=== PATIENT | female | born 1960 | race Caucasian/White ===

== ENCOUNTER → 2017-12-07 | Outpatient (CLI) | payer MEDICARE, OTHER ==
[~2017-12-07] MED LIST: AMITRIPTYLINE H10 MG PO; ASACOL HD800 MG PO; ATARAX PO; BUTALB-CAFF-AC1 EACH PO; CYCLOBENZAPRINE10 MG PO; CYCLOBENZAPRINE5 MG PO; ELMIRON100 MG PO; FLEXERIL PO; FLEXERIL5 MG PO; HYDROXYZINE HCL50 MG PO; LIBRAX CAPSULE1 EACH PO; LIPITOR40 MG PO; LOPRESSOR25 MG PO; LYRICA100 MG PO; NORCO 10-325 T1 EACH PO; OPANA ER15 MG PO; OPANA10 MG PO; OXYCODONE-ACET1 EAC3 PO; OXYCONTIN20 MG PO; OXYMORPHONE HCL10 MG PO; OXYMORPHONE HCL15 MG PO; PREVACID30 M1 PO; TEMAZEPAM15 MG PO; TEMAZEPAM22.5 MG PO; [UNRECOGNIZED DRUG - OTHER]
--- NOTE | 2017-12-07 12:36 | Diagnostic Imaging Report ---
PROCEDURE:RIBS UNILAT W/CXR TECHNIQUE:PA chest with AP and oblique views of the left ribs. INDICATION:Left rib pain COMPARISON:None. FINDINGS: Healed fracture of the right fourth rib. Nondisplaced fracture at the anterior margin of the left second rib. No conspicuous lytic or blastic lesions. Clear lungs. Upper limits of normal heart size for technique. Mild biapical pleural scarring. Intact skeleton. Cholecystectomy clips. CONCLUSION: Nondisplaced fracture of the left second rib. Dictated by: Alberto Wang M.D. on 12/07/2017 at 12:39 Electronically approved by: Alberto Wang M.D. on 12/07/2017 at 12:39
--- NOTE | 2017-12-07 12:39 | Diagnostic Imaging Report ---
PROCEDURE:CHEST 2 VIEWS TECHNIQUE:PA and lateral chest. INDICATION:Left-sided rib pain. COMPARISON:[facility], DX, RIBS UNILAT W/CXR, 12/07/2017, 11:53. [facility], DX, CHEST 2 VIEWS, 04/15/2017, 7:49. FINDINGS: The lungs are clear and symmetrically inflated. Normal heart size and mediastinal contour. Intact skeleton. CONCLUSION: No acute abnormality. Nondisplaced left second rib fracture seen on recent rib series is not conspicuous. Dictated by: Alberto Wang M.D. on 12/07/2017 at 12:42 Electronically approved by: Alberto Wang M.D. on 12/07/2017 at 12:42
== END ==
LOC: RAD 11:31
PROVIDERS: ATTEND Family Medicine
DX: S20.219A Contusion of unspecified front wall of thorax, initial encounter (principal)
CPT/HCPCS: 71046; 71101

== ENCOUNTER → 2018-01-15 | Outpatient (CLI) | payer MEDICARE, OTHER ==
--- NOTE | 2018-01-15 15:10 | Diagnostic Imaging Report ---
PROCEDURE: CT CHEST WITHOUT CONTRAST CT scan of the chest WITHOUT intravenous contrast, using standard protocol. TECHNIQUE: The chest was scanned utilizing a multidetector helical scanner from the apex to the level of the adrenal glands. No IV contrast was administered. Coronal and sagittal multiplanar reformations were obtained. COMPARISON: None. INDICATIONS: COPD, SOB FINDINGS: Lines/tubes: None. Lungs and Airways: Mild paraseptal and centrilobular emphysema within upper lobe predominance. Biapical subpleural scarring. No focal consolidation. No suspicious lung masses. The central airways are clear. Pleura: The pleural spaces are clear. Heart and mediastinum: The thyroid gland is normal. No significant mediastinal, hilar or axillary lymphadenopathy is seen. Anterior diaphragmatic lymph nodes which measure up to 1.0 cm (series 2, image 91) are nonspecific. Normal heart size. No pericardial effusion. Soft tissues: Normal. Abdomen: The right kidney is not visualized. There are metallic fragments in the right retroperitoneum. There is been a cholecystectomy. Bones: Multilevel spondylosis of the thoracic spine with exaggerated kyphosis IMPRESSION: Radiographically mild paraseptal and centrilobular emphysema. No focal consolidation or suspicious lung masses. Dictated by: Rustam Enciso M.D. on 01/15/2018 at 15:15 Electronically approved by: Rustam Enciso M.D. on 01/15/2018 at 15:15
== END ==
LOC: CT 13:41
PROVIDERS: ATTEND Family Medicine
DX: J44.9 Chronic obstructive pulmonary disease, unspecified (principal)
CPT/HCPCS: 71250

== ENCOUNTER 2018-01-19 09:08 | Emergency (ER) | payer MEDICARE, OTHER ==
[~2018-01-19] VITALS: Ht 157.5 cm; Wt 54.9 kg
[2018-01-19] MEDS ORDERED: ONDANSETRON HCL 4 MG ORAL DISINTEGRATING TAB PO ONE (10:00)
[2018-01-19] MEDS ORDERED: FENTANYL CITRATE/PF 100MCG/2 ML INJ IV ONE (10:00)
--- NOTE | 2018-01-19 11:32 | Diagnostic Imaging Report ---
PROCEDURE:X-RAY ABDOMEN, ACUTE SERIES COMPARISON:CT Abdomen/Pelvis 11/27/2008 INDICATIONS:LEFT SIDE ABDOMEN PAIN FINDINGS: No dilated loops of bowel. There are non-distended small bowel loops with air fluid levels on upright view, however air and stool is seen in the colon. No free air underneath the diaphragm. Status post cholecystectomy. Additional clips project over right upper quadrant. Visualized portions of the lung bases are clear. No definite calcifications are seen overlying the urinary system. Five non-rib bearing lumbar type vertebral bodies identified. CONCLUSION: Air fluid levels in non-dilated small bowel loops, which may suggest enteritis. Air is seen in colonic loops, therefore no specific evidence of obstruction. Dictated by: LYNDSEY MAHAN M.D. on 01/19/2018 at 11:36 Electronically approved by: LYNDSEY MAHAN M.D. on 01/19/2018 at 11:36
[2018-01-19 12:23] LABS: BASOPHILS # (AUTO) 0.1 (0.0-0.1); BASOPHILS % 0.6 % (0.0-1.0); EOSINOPHILS # (AUTO) 0.7 (0.0-0.4); EOSINOPHILS % 6.4 % (0.0-6.0); HEMATOCRIT 47.4 % (34.2-44.1); HEMOGLOBIN 16.1 g/dL (12.0-16.0); LYMPHOCYTES # (AUTO) 2.5 (1.0-3.2); MEAN CORPUSCULAR HEMOGLOBIN 31.2 pg (28-32); MEAN CORPUSCULAR VOLUME 91.9 fL (81-99); MONOCYTES # (AUTO) 0.8 (0.2-0.8); MONOCYTES % 7.4 % (4.4-11.3); NEUTROPHILS # (AUTO) 7.1 (2.1-6.9); NEUTROPHILS % 63.3 % (38.7-80.0); PLATELET COUNT 174 x10e3/uL (140-360); RED BLOOD COUNT 5.16 x10e6/uL (3.6-5.1); RED CELL DISTRIBUTION WIDTH 12.5 % (11.7-14.4)
[2018-01-19 12:41] LABS: ALBUMIN 4.1 g/dL (3.5-5.0); ALBUMIN/GLOBULIN RATIO 0.9 (0.8-2.0); ANION GAP 17.6 mmol/L (8-16); CALCIUM 10.1 mg/dL (8.4-10.2); CREATININE, SERUM 0.98 mg/dL (0.57-1.11); MAGNESIUM 2.3 MG/DL (1.3-2.1); POTASSIUM 4.6 mmol/L (3.5-5.1)
[2018-01-19] MEDS ORDERED: DIATRIZOATE MEGL/DIATRIZOA SOD 30 ML BTL PO ONE (13:12)
[2018-01-19] MEDS ORDERED: SODIUM CHLORIDE 0.9% 50ML 50 ML ONE (14:35)
[2018-01-19] MEDS ORDERED: IOPAMIDOL 370 MG/ML 200 ML INFUS..BTL INJ ONE (14:35)
[2018-01-19] MEDS ORDERED: FENTANYL CITRATE/PF 100MCG/2 ML INJ IV NR (14:45)
[2018-01-19] MEDS ORDERED: ONDANSETRON HCL 4 MG ORAL DISINTEGRATING TAB PO NR (14:45)
--- NOTE | 2018-01-19 15:34 | Diagnostic Imaging Report ---
PROCEDURE: CT ABDOMEN AND PELVIS WITH CONTRAST TECHNIQUE: The abdomen and pelvis were scanned utilizing a multidetector helical scanner from the diaphragm to the lesser trochanter after the IV administration of 100 cc of Isovue 370 and the oral administration of dilute Gastrografin. Coronal and sagittal multiplanar reformations were obtained. COMPARISON: [facility], CT, CT ABDOMEN/PELVIS W, 06/12/2014, 13:52. INDICATIONS: LEFT ABD PAIN, HX OF CHRONS FINDINGS: LOWER THORAX: Unremarkable HEPATOBILIARY: No focal hepatic lesions. Moderate central intrahepatic bile duct dilation and moderate dilation of the common bile duct, which measures 1.2 cm at the sherman hepatis and is stable since the prior exam. No radiopaque intraluminal filling defects. Cholecystectomy clips. SPLEEN: No splenomegaly. PANCREAS: No focal masses or ductal dilatation. ADRENALS: No adrenal nodules. KIDNEYS/URETERS: Status post right nephrectomy. Left kidney shows no hydronephrosis, stones, or a solid, enhancing lesions. Normal parenchymal enhancement. PELVIC ORGANS/BLADDER: Bladder is unremarkable. Uterus is not visualized. No adnexal masses. PERITONEUM / RETROPERITONEUM: No free air or fluid. LYMPH NODES: No lymphadenopathy. VESSELS: Atherosclerotic calcification of the abdominal aorta and iliac vessels. GI TRACT: No bowel dilation or evidence of obstruction. Moderate retained stool in the cecum, ascending, and proximal transverse colon. Stable surgical sutures in the mid sigmoid. No wall thickening or pericolonic inflammatory changes. BONES AND SOFT TISSUES: No aggressive lytic lesions. Multilevel degenerative disc changes in the lumbosacral spine. Mild osteopenia. Soft tissues are unremarkable. IMPRESSION: 1. No acute abdominopelvic abnormalities. Specifically, no acute abnormal findings in the left abdomen to explain the patient's pain. 2. No bowel dilation or evidence of obstruction. Moderate retained stool in the cecum, ascending, and proximal transverse colon, however, relatively unchanged since the prior exam. 3. Stable moderate central intrahepatic bile duct and moderate dilation of the common bile duct, consistent with postcholecystectomy status Jonny Landry M.D. Dictated by: Jonny Landry M.D. on 01/19/2018 at 15:39 Electronically approved by: Jonny Landry M.D. on 01/19/2018 at 15:39
== END 2018-01-19 16:27 | disposition home or self-care (01) ==
LOC: ER 09:08
DX: R10.32 Left lower quadrant pain (principal); R10.12 Left upper quadrant pain; R11.2 Nausea with vomiting, unspecified; I10 Essential (primary) hypertension; E78.5 Hyperlipidemia, unspecified; K50.90 Crohn's disease, unspecified, without complications; K21.9 Gastro-esophageal reflux disease without esophagitis; Z85.53 Personal history of malignant neoplasm of renal pelvis
CPT/HCPCS: 36415; 74022; 74177; 80053; 83690; 83735; 85025; 99284; Q9967

== ENCOUNTER → 2018-01-27 | Day surgery (SDC) | payer MEDICARE, OTHER ==
[~2018-01-27] MED LIST changes: +DONNATAL/LIDOCAINE/MAALOX 30 ML SUSP PO ONE; +FENTANYL CITRATE/PF 100MCG/2 ML INJ ONE; +LEVAQUIN500 MG PO; +LIDOCAINE HCL 2% LOCAL INJ 5 ML SDV VIAL INJ ONE; +LISINOPRIL2.5 MG PO; +METRONIDAZOLE500 MG PO; +MIDAZOLAM HCL 2 MG/2 ML VIAL ONE; +OXYMORPHONE PO; +PROPOFOL IV EMULSION 10 MG/ML 50 ML VIAL ONE; +SYMBICORT 16010.2 GM INH; +TIZANIDINE HCL4 MG PO; +TRAZODONE HCL50 MG PO; +ZOFRAN ODT4 MG PO
--- NOTE | 2018-01-27 11:50 | Operative Report ---
DATE OF PROCEDURE: January 27, 2018 REFERRING PHYSICIAN: Dr. Alexy Hayden. PROCEDURE PERFORMED: Esophagogastroduodenoscopy with esophageal dilatation and biopsies. INDICATIONS FOR ESOPHAGOGASTRODUODENOSCOPY: Dysphagia, upper abdominal pain. MEDICATION: Patient was done under MAC. Please see anesthesiologist's note. PROCEDURE: Patient in left lateral decubitus position. Flexible fiberoptic Olympus gastroscope was introduced into the esophagus under direct visualization without any difficulty. There was some patchy erythema noted in distal esophagus. A minute nodule was noted at the GE junction and that was biopsied. There was a mild stricture at the GE junction that was dilated to a size 52-[place] Schmid. The scope was then advanced with ease into the stomach traversing a small sliding hiatal hernia. Mucosa overlying the antrum and the body revealed some diffuse erythema and low-grade edema and biopsies were obtained and sent to stain for H. pylori. Some focal nodularity was noted in the pylorus and that was biopsied. The pylorus was then intubated with ease and the scope was advanced all the way to the 2nd portion of the duodenum. The scope was then withdrawn slowly. Mucosa overlying the proximal 2nd portion and the duodenal bulb appeared to be within normal limits. The scope was then withdrawn back into the stomach and retroflexed. Mucosa overlying the fundus and the cardia appeared to be within normal limits. The scope was then straightened out. The stomach was decompressed. The scope was subsequently withdrawn. Patient tolerated procedure well. IMPRESSIONS 1. Distal esophagitis, mild. 2. Mild stricture at gastroesophageal junction, dilated to size 52-[place] Schmid. 3. Minute nodule, gastroesophageal junction, biopsied. 4. Small sliding hiatal hernia. 5. Gastritis, biopsied. Biopsies sent to stain for Helicobacter pylori. 6. Focal nodularity, pylorus, biopsied. PLAN: Follow up histology. Increase Protonix to 40 mg 1 p.o. a.c. b.i.d. Job#: [id number] TA cc:ALEXY HAYDEN MD
== END | disposition home or self-care (01) ==
LOC: OR 08:03
PROVIDERS: ATTEND Internal Medicine Gastroenterology
DX: K29.70 Gastritis, unspecified, without bleeding (principal); K31.7 Polyp of stomach and duodenum; K22.2 Esophageal obstruction; K21.0 Gastro-esophageal reflux disease with esophagitis; K44.9 Diaphragmatic hernia without obstruction or gangrene; K31.89 Other diseases of stomach and duodenum; K59.00 Constipation, unspecified; J44.9 Chronic obstructive pulmonary disease, unspecified; I10 Essential (primary) hypertension; M81.0 Age-related osteoporosis without current pathological fracture; G62.9 Polyneuropathy, unspecified; F17.210 Nicotine dependence, cigarettes, uncomplicated; Z88.6 Allergy status to analgesic agent; Z88.3 Allergy status to other anti-infective agents; Z88.0 Allergy status to penicillin; Z88.8 Allergy status to other drugs, medicaments and biological substances; Z85.528 Personal history of other malignant neoplasm of kidney
CPT/HCPCS: 43239; 43450; 88305; 88312; J2001; J2250

== ENCOUNTER → 2018-06-01 | Outpatient (CLI) | payer MEDICARE, OTHER ==
[~2018-06-01] MED LIST changes: -DONNATAL/LIDOCAINE/MAALOX 30 ML SUSP PO ONE; -FENTANYL CITRATE/PF 100MCG/2 ML INJ ONE; -LIDOCAINE HCL 2% LOCAL INJ 5 ML SDV VIAL INJ ONE; -MIDAZOLAM HCL 2 MG/2 ML VIAL ONE; -PROPOFOL IV EMULSION 10 MG/ML 50 ML VIAL ONE
--- NOTE | 2018-06-01 08:28 | Diagnostic Imaging Report ---
PROCEDURE: CT CHEST WITHOUT CONTRAST CT scan of the chest WITHOUT intravenous contrast, using standard protocol. TECHNIQUE: The chest was scanned utilizing a multidetector helical scanner from the apex to the level of the adrenal glands. No IV contrast was administered per protocol. Coronal and sagittal multiplanar reformations were obtained. COMPARISON: CT Chest 01/15/18. INDICATIONS: BRONCHITIS FINDINGS: Lines/tubes: None. Lungs and Airways: There are patchy ground glass opacities in the left upper lobe on series 3, image [id number], new since CT on 01/15/18. Mild upper lobe predominant paraseptal and centrilobular emphysema. Mild subpleural reticular opacities in the right upper lobe, for example on series 3, image 37. Biapical pleural parenchymal scarring. The central airways are patent. Mild diffuse bronchial wall thickening. Pleura: The pleural spaces are clear. Heart and mediastinum: The thyroid gland is normal. No significant mediastinal, hilar or axillary lymphadenopathy is seen. No pericardial effusion. Scattered atherosclerotic changes of the thoracic aorta. Unchanged non-specific anterior diaphragmatic lymph nodes measuring up to 1 cm. Soft tissues: Normal. Abdomen: Limited views of the upper abdomen show no abnormality within the visualized liver, spleen, pancreas, or kidneys. The adrenal glands are normal. Status post cholecystectomy. Metal fragments are in the right upper quadrant abdomen. The right kidney is not visualized. Bones: No acute bony findings. There is kyphosis of the thoracic spine with multilevel degenerative changes. Interval development of severe compression deformity at T8 with greater than 75 percent loss of vertebral body height. Mild compression deformities at T10 and T11 and moderate compression deformity at T12 are similar in appearance to the prior CT. Interval development of a mild compression deformity at L1. Healing right 8-10th posterolateral rib fractures and left anterolateral 3-6th rib fractures with associated bony callous formation, prior nearly healed fractures were present at these sites. IMPRESSION: Patchy ground glass opacities in the left upper lobe, new since CT on 01/15/18, likely infectious in etiology. No evidence of lobar pneumonia. Follow-up chest CT is suggested to assess for resolution in 3 months. Diffuse mild bronchial wall thickening, compatible with clinical history of bronchitis. Interval development of severe compression deformity at T8 and mild compression deformity at L1 since prior CT. Additional compression deformities at T10-T12 are unchanged. Interval developing of subacute on chronic healing bilateral rib fractures as above. Dictated by: LYNDSEY MAHAN M.D. on 06/01/2018 at 8:38 Electronically approved by: LYNDSEY MAHAN M.D. on 06/01/2018 at 8:38
== END ==
LOC: CT 07:28
PROVIDERS: ATTEND Family Medicine
DX: J40 Bronchitis, not specified as acute or chronic (principal)
CPT/HCPCS: 71250

== ENCOUNTER → 2018-10-21 | Outpatient (CLI) | payer MEDICARE, OTHER ==
[~2018-10-21] MED LIST changes: +APRISO0.375 GM PO; +DICYCLOMINE HCL10 MG PO; +PANTOPRAZOLE SO40 MG PO; +PROAIR HFA INH8.5 GM INH; +SUCRALFATE1 GM PO; +VITAMIN D1000 UNI1 PO
--- NOTE | 2018-10-21 15:27 | Diagnostic Imaging Report ---
FLUOROSCOPIC SMALL BOWEL SERIES ESL TEACHER(S): Kaitlin Monaco MD Indication: Ulcerative colitis. Comparison: None. Radiation Dose: Total dose: 13.4 mGy Total fluoroscopy time: 0.6 minutes Procedure: Small bowel follow through exam was performed using oral barium. Preliminary image was obtained before administration of contrast and serial overhead images were obtained after administration of oral barium. Fluoroscopy was performed and spot images were obtained. DISCUSSION: WATER QUALITY MANAGER: The bowel gas pattern is non-obstructive. No acute bony abnormality. Surgical clips in the right upper and mid abdomen. Moderate amount of stool in the colon. STOMACH: Unremarkable mucosal pattern. SMALL BOWEL: Bulb and sweep are normal. Duodenal-jejunal junction is in the normal expected position. Small bowel loops are normal in caliber and distribution. There is no evidence of fistula, mucosal changes, stricture or dilation. The transit time was within normal limits. Spot image of the terminal ileum was unremarkable. COLON: Filling defects within the proximal colon likely reflect stool contents. No evidence of stricture or specific evidence of mass in the cecum. IMPRESSION: Unremarkable fluoroscopic small bowel series. Signed by: Dr. Kaitlin Monaco MD on 10/21/2018 3:24 PM
== END ==
LOC: DX 08:26
PROVIDERS: ATTEND Internal Medicine Gastroenterology
DX: K51.90 Ulcerative colitis, unspecified, without complications (principal)
CPT/HCPCS: 74250

== ENCOUNTER → 2018-12-07 | Outpatient (CLI) | payer MEDICARE, OTHER ==
--- NOTE | 2018-12-07 09:11 | Diagnostic Imaging Report ---
EXAM: CT Chest without contrast INDICATION: Follow-up pneumonia. COMPARISON: CT Chest 06/01/18. TECHNIQUE: Chest was scanned utilizing a multidetector helical scanner from the lung apex through the level of the adrenal glands without administration of IV contrast. Coronal and sagittal reformations were obtained. Routine protocol was performed. RADIATION DOSE: Total DLP: 155.6 mGy*cm Dose modulation, iterative reconstruction, and/or weight based adjustment of the mA/kV was utilized to reduce the radiation dose to as low as reasonably achievable. COMPLICATIONS: None FINDINGS: LINES/ TUBES: None. LUNGS AND AIRWAYS: Interval resolution of patchy groundglass opacities in the left upper lobe. Mild upper lobe predominant paraseptal and centrilobular emphysematous changes of the lungs. Mild subpleural reticular opacities in the right upper lobe. Biapical pleural-parenchymal scarring. The central airways are patent. PLEURA: The pleural spaces are clear. HEART AND MEDIASTINUM: The thyroid gland is normal. No mediastinal, hilar or axillary lymphadenopathy. No cardiomegaly or pericardial effusion. Scattered atherosclerotic changes of the thoracic aorta. Unchanged nonspecific prominent anterior diaphragmatic lymph nodes, measuring up to 1 cm. UPPER ABDOMEN: Limited non-contrast views of the upper abdomen. Status post cholecystectomy. Metal fragments are in the right upper quadrant. The right kidney is not visualized. BONES: No acute osseous abnormality. Thoracic kyphosis with multilevel degenerative changes. Unchanged severe compression deformity of T8 with greater than 75% loss of vertebral body height. Unchanged mild compression deformities of T10, T11, and L1 as well as moderate compression deformity at T12. SOFT TISSUES: Unremarkable. IMPRESSION: Interval resolution of patchy groundglass opacities in the left upper lobe, consistent with resolution of infectious etiology. Multiple lower thoracic and upper lumbar compression deformities and bilateral healing rib fractures as above. Signed by: Dr. Kaitlin Monaco MD on 12/07/2018 9:08 AM
== END ==
LOC: CT 08:12
PROVIDERS: ATTEND Internal Medicine
DX: R91.8 Other nonspecific abnormal finding of lung field (principal)
CPT/HCPCS: 71250

== ENCOUNTER → 2019-04-08 | Day surgery (SDC) | payer MEDICARE, OTHER ==
[~2019-04-08] MED LIST changes: +FENTANYL CITRATE/PF 100MCG/2 ML INJ ONE; +LIDOCAINE HCL 2% LOCAL INJ 5 ML SDV VIAL INJ ONE; +METOCLOPRAMIDE HCL 10 MG/2ML VIAL ONE; +MIDAZOLAM HCL 2 MG/2 ML VIAL ONE; +PROPOFOL IV EMULSION 10 MG/ML 50 ML VIAL ONE
[2019-04-08 18:10] VITALS: BP 127/63
--- NOTE | 2019-04-09 01:08 | Operative Report ---
DATE OF PROCEDURE: 04/08/2019 SURGEON: Rubén Seo MD PROCEDURE: EGD with esophageal dilatation and biopsies. INDICATIONS FOR EGD: Dysphagia to solids. MEDICATIONS: The patient was done under MAC, please see anesthesiologist's note. PROCEDURE IN DETAIL: With the patient in left lateral decubitus position, flexible fiberoptic Olympus gastroscope was introduced into the esophagus under direct visualization without any difficulty. There was some patchy erythema noted in distal esophagus. A mild stricture was noted at the GE junction. It was dilated to size 54-[place] Schmid. The scope was then advanced with ease into the stomach traversing a small sliding hiatal hernia. Mucosa overlying the antrum revealed some diffuse intense erythema and moderate edema and biopsies were obtained, sent to stain for H pylori. Pylorus was of normal contour and shape, it was intubated with ease and the scope was advanced all the way to the second portion of the duodenum. The scope was then withdrawn slowly. Mucosa overlying the proximal second portion and the duodenal bulb appeared to be within normal limits. The scope was then withdrawn back into the stomach and retroflexed, and mucosa overlying the fundus and cardia appeared to be within normal limits. The scope was then straightened out, it was subsequently withdrawn, and the patient tolerated the procedure well. IMPRESSION: 1. Distal esophagitis. 2. Mild stricture at GE junction dilated to size 54-[place] Schmid. 3. Small sliding hiatal hernia. 4. Gastritis, biopsied. Biopsies sent to stain for Helicobacter pylori. PLAN: Follow up histology. Initiate Dexilant 60 mg one p.o. q.a.m. a.c. Rubén Seo MD [facility] [place]/JOSEFIN[facility] /[id number] cc: Robin Hayden MD
== END | disposition home or self-care (01) ==
LOC: OR 13:22
PROVIDERS: ATTEND Internal Medicine Gastroenterology
DX: K22.2 Esophageal obstruction (principal); K20.9 Esophagitis, unspecified; R13.10 Dysphagia, unspecified; K44.9 Diaphragmatic hernia without obstruction or gangrene; K29.50 Unspecified chronic gastritis without bleeding; Z01.810 Encounter for preprocedural cardiovascular examination
CPT/HCPCS: 43239; 43450; 88305; 88312; 93005; J2001; J2250; J2704; J2765; J3010

== ENCOUNTER → 2019-04-13 | Outpatient (CLI) | payer MEDICARE, OTHER ==
[~2019-04-13] MED LIST changes: -FENTANYL CITRATE/PF 100MCG/2 ML INJ ONE; -LIDOCAINE HCL 2% LOCAL INJ 5 ML SDV VIAL INJ ONE; -METOCLOPRAMIDE HCL 10 MG/2ML VIAL ONE; -MIDAZOLAM HCL 2 MG/2 ML VIAL ONE; -PROPOFOL IV EMULSION 10 MG/ML 50 ML VIAL ONE
--- NOTE | 2019-04-13 15:21 | Diagnostic Imaging Report ---
PROCEDURE: X-RAY MODIFIED BARIUM SWALLOW COMPARISON: None. INDICATION: Dysphasia Radiation Details: Fluoroscopy time: 0.7 minutes Cumulative dose: 2.7 mGy DISCUSSION: Fluoroscopic examination was performed in conjunction with speech pathology during swallowing a variety of thin and thick liquid consistencies. Provided images demonstrate no laryngeal penetration or aspiration. CONCLUSION: Modified barium swallow demonstrating no laryngeal penetration or aspiration. Please refer to the speech pathology report for further details. Signed by: Parmjit Banks MD on 04/13/2019 3:18 PM
== END ==
LOC: DX 13:42
PROVIDERS: ATTEND Internal Medicine Gastroenterology
DX: R13.10 Dysphagia, unspecified (principal)
CPT/HCPCS: 74230

== ENCOUNTER → 2020-04-18 | Day surgery (SDC) | payer MEDICARE, OTHER ==
[2020-04-13 10:23] LABS: BASOPHILS # (AUTO) 0.1 (0.0-0.1); BASOPHILS % 0.7 % (0.0-1.0); EOSINOPHILS # (AUTO) 0.2 (0.0-0.4); EOSINOPHILS % 2.7 % (0.0-6.0); HEMATOCRIT 49.5 % (34.2-44.1); LYMPHOCYTES # (AUTO) 2.6 (1.0-3.2); LYMPHOCYTES % 31.2 % (18.0-39.1); MEAN CORPUSCULAR HEMOGLOBIN 30.7 pg (28-32); MEAN CORPUSCULAR HGB CONC 32.3 g/dL (31-35); MONOCYTES # (AUTO) 0.7 (0.2-0.8); MONOCYTES % 8.1 % (4.4-11.3); NEUTROPHILS # (AUTO) 4.8 (2.1-6.9); NEUTROPHILS % 57.1 % (38.7-80.0); PLATELET COUNT 193 x10e3/uL (140-360); RED BLOOD COUNT 5.21 x10e6/uL (3.6-5.1); RED CELL DISTRIBUTION WIDTH 13.2 % (11.7-14.4)
[2020-04-13 10:33] LABS: ALANINE AMINOTRANSFERASE 17 IU/L (0-55); ALBUMIN 4.1 g/dL (3.5-5.0); ALBUMIN/GLOBULIN RATIO 1.1 (0.8-2.0); ALKALINE PHOSPHATASE 122 IU/L (40-150); ANION GAP 15.1 mmol/L (8-16); BLOOD UREA NITROGEN 11 mg/dL (7-26); BUN/CREATININE RATIO 13 (6-25); CALCIUM 9.5 mg/dL (8.4-10.2); CARBON DIOXIDE 22 mmol/L (22-29); CHLORIDE 105 mmol/L (98-107); CREATININE, SERUM 0.87 mg/dL (0.57-1.11); EST GLOMERULAR FILTRATION RATE > 60 ML/MIN (60-); GLUCOSE 91 mg/dL (74-118); POTASSIUM 4.1 mmol/L (3.5-5.1); SODIUM 138 mmol/L (136-145)
[~2020-04-18] MED LIST changes: +DEXAMETHASONE SOD PHOS INJ 4 MG/ML VIAL ONE; +IOPAMIDOL 300MG/ML 50ML INFUS..BTL IV ONE; +LIDOCAINE HCL 2% LOCAL INJ 5 ML SDV VIAL INJ ONE; +ONDANSETRON HCL INJ 2MG/ML 2ML 2 MG/ML VIAL ONE; +PROPOFOL IV EMULSION 10 MG/ML 20 ML VIAL ONE; +SEVOFLURANE INHAL SOLN 250 ML PEN BTL ONE; +XTAMPZA ER13.5 MG PO
[2020-04-18 08:25] VITALS: BP 120/65
== END | disposition home or self-care (01) ==
LOC: OR 05:25
PROVIDERS: ATTEND Urology
DX: N36.42 Intrinsic sphincter deficiency (ISD) (principal); N81.6 Rectocele; Z88.1 Allergy status to other antibiotic agents; Z88.5 Allergy status to narcotic agent; Z88.0 Allergy status to penicillin; Z88.8 Allergy status to other drugs, medicaments and biological substances; Z85.528 Personal history of other malignant neoplasm of kidney; Z01.810 Encounter for preprocedural cardiovascular examination; Z01.812 Encounter for preprocedural laboratory examination; Z11.59 Encounter for screening for other viral diseases
CPT/HCPCS: 36415; 52250; 74420; 80053; 85025; 87086; 93005; C1758; J1100; J2001; J2405; J2704; Q9967; U0002

== ENCOUNTER → 2024-02-05 | Outpatient (REF) | payer MEDICARE, OTHER ==
[~2024-02-05] MED LIST changes: -DEXAMETHASONE SOD PHOS INJ 4 MG/ML VIAL ONE; -IOPAMIDOL 300MG/ML 50ML INFUS..BTL IV ONE; +IOPAMIDOL 370 MG/ML 100 ML INFUS..BTL INJ ONE; -LIDOCAINE HCL 2% LOCAL INJ 5 ML SDV VIAL INJ ONE; -ONDANSETRON HCL INJ 2MG/ML 2ML 2 MG/ML VIAL ONE; -PROPOFOL IV EMULSION 10 MG/ML 20 ML VIAL ONE; -SEVOFLURANE INHAL SOLN 250 ML PEN BTL ONE
[2024-02-05 10:23] LABS: CREATININE, SERUM 0.86 mg/dL (0.57-1.11)
== END ==
LOC: CT 09:10
PROVIDERS: ATTEND Nurse Practitioner
DX: R93.2 Abnormal findings on diagnostic imaging of liver and biliary tract (principal)
CPT/HCPCS: 36415; 74177; 82565; 84520; Q9967

== ENCOUNTER → 2024-02-26 | Day surgery (SDC) | payer OTHER, MEDICARE ==
[~2024-02-26] MED LIST changes: +BELBUCA600 MCG PO; +DICYCLOMINE HCL20 MG PO; +HYDROCODON-ACE1 EA12 PO; +HYOSCYAMINE SULFATE 0.5 MG/ML INJ ONE; -IOPAMIDOL 370 MG/ML 100 ML INFUS..BTL INJ ONE; +PROPOFOL IV EMULSION 50 ML IV ONE
[2024-02-26] MEDS: LACTATED RINGER'S 1,000 ML ONE (07:04)
[2024-02-26 10:00] VITALS: BP 120/67; PULSE 84; RESP 16; TEMP 97.3; O2SAT 98
== END | disposition home or self-care (01) ==
LOC: OR 06:50
PROVIDERS: ATTEND Internal Medicine Gastroenterology
DX: Z12.11 Encounter for screening for malignant neoplasm of colon (principal); D12.2 Benign neoplasm of ascending colon; K57.30 Diverticulosis of large intestine without perforation or abscess without bleeding; Z98.0 Intestinal bypass and anastomosis status; K64.8 Other hemorrhoids; K21.9 Gastro-esophageal reflux disease without esophagitis; F17.210 Nicotine dependence, cigarettes, uncomplicated; F17.290 Nicotine dependence, other tobacco product, uncomplicated; Z88.6 Allergy status to analgesic agent; Z88.1 Allergy status to other antibiotic agents; Z88.0 Allergy status to penicillin; Z88.8 Allergy status to other drugs, medicaments and biological substances; Z01.810 Encounter for preprocedural cardiovascular examination; Z79.899 Other long term (current) drug therapy
CPT/HCPCS: 45385; 93005; J1980; J2704; J7121; 45378

== ENCOUNTER 2025-01-16 14:11 | Emergency (ER) | payer OTHER, MEDICARE ==
[~2025-01-16] VITALS: Ht 144.8 cm; Wt 40.4 kg
[~2025-01-16 14:11] MED LIST changes: -HYOSCYAMINE SULFATE 0.5 MG/ML INJ ONE; -PROPOFOL IV EMULSION 50 ML IV ONE
[2025-01-16] MEDS: BACITRACIN ZINC 0.9GM TP ONE (16:11)
[2025-01-16] MEDS: TETANUS/DIPHTHERIA TOX ADULT 0.5 ML SYR IM ONE (16:12)
[2025-01-16] MEDS: TRAMADOL HCL 50 MG TAB PO ONE (16:12)
[2025-01-16 17:50] VITALS: PULSE 87; RESP 16; TEMP 98.8; O2SAT 96
[2025-01-16] MEDS: KETOROLAC TROMETHAMINE 30 MG/ML VIAL IM STA (17:50)
== END 2025-01-16 18:17 | disposition home or self-care (01) ==
LOC: FSED 14:30
DX: S01.112A Laceration without foreign body of left eyelid and periocular area, initial encounter (principal); S42.212A Unspecified displaced fracture of surgical neck of left humerus, initial encounter for closed fracture; M25.512 Pain in left shoulder; M54.50 Low back pain, unspecified; W01.0XXA Fall on same level from slipping, tripping and stumbling without subsequent striking against object, initial encounter; Y93.01 Activity, walking, marching and hiking; Y92.89 Other specified places as the place of occurrence of the external cause; I10 Essential (primary) hypertension; E78.5 Hyperlipidemia, unspecified; K21.9 Gastro-esophageal reflux disease without esophagitis; Z85.53 Personal history of malignant neoplasm of renal pelvis; Z87.19 Personal history of other diseases of the digestive system
CPT/HCPCS: 12011; 72100; 72131; 73030; 73060; 90471; 90714; 96372; 99284; J1885

== ENCOUNTER 2025-02-05 10:43 | Emergency (ER) | payer OTHER, MEDICARE ==
[~2025-02-05] VITALS: Ht 144.8 cm; Wt 36.3 kg
[2025-02-05 10:55] VITALS: TEMP 99.1
[2025-02-05] MEDS ORDERED: IOPAMIDOL 370 MG/ML 100 ML INFUS..BTL INJ ONE (11:42)
[2025-02-05] MEDS: SODIUM CHLORIDE 0.9% 1000ML 1,000 ML IV ONE (11:45)
[2025-02-05] MEDS: KETOROLAC TROMETHAMINE 30 MG/ML VIAL IV STA (11:46)
[2025-02-05 14:00] VITALS: PULSE 67; RESP 18; O2SAT 99
[2025-02-05 14:46] VITALS: BP 129/64; PULSE 80; RESP 16; TEMP 98.2
== END 2025-02-05 14:50 | disposition home or self-care (01) ==
LOC: FSED 10:53
DX: K59.00 Constipation, unspecified (principal)
CPT/HCPCS: 71045; 74177; 93005; 99284; J1885; J7030; Q9967

== ENCOUNTER 2025-02-24 09:00 | Outpatient (RCR) | payer OTHER, MEDICARE | END 2025-02-26 | LOC: OT 09:00 | PROVIDERS: ATTEND Physician Assistant | DX: S42.232A 3-part fracture of surgical neck of left humerus, initial encounter for closed fracture (principal) ==

== ENCOUNTER 2025-02-28 07:56 | Outpatient (RCR) | payer OTHER, MEDICARE | END 2025-03-28 | LOC: OT 07:56 | PROVIDERS: ATTEND Physician Assistant | DX: S42.232A 3-part fracture of surgical neck of left humerus, initial encounter for closed fracture (principal) ==

== ENCOUNTER → 2025-04-11 | Outpatient (REF) | payer OTHER, MEDICARE | LOC: US 07:20 | PROVIDERS: ATTEND Nurse Practitioner | DX: R10.84 Generalized abdominal pain (principal) | CPT/HCPCS: 76700 ==